=== PATIENT | female | born 1955 | race Caucasian/White ===

== ENCOUNTER 2018-12-13 08:21 | Inpatient (IN) ==
--- NOTE | 2018-11-22 14:07 | PAT Medication Instructions ---
Medication Instructions Date of Service November 22, 2018 Home Medications Pro Balancing Cream 1 dose TOPICAL UD Sea Vegetable Drops 1 dose PO UD albuterol sulfate 1 puff INHALATION UD PRN aspirin [Aspir-81] 81 mg PO DAILY calcium carbonate [Calcium 600] 600 mg PO DAILY cetirizine [Zyrtec] 10 mg PO DAILY cholecalciferol (vitamin D3) [Vitamin D3] 5,000 unit PO DAILY escitalopram oxalate [Lexapro] 10 mg PO QPM fluticasone propionate 1 - 2 spray INTRANASAL DAILY PRN lorazepam 0.5 mg PO UD PRN magnesium 400 mg PO DAILY meloxicam 15 mg PO UD PRN metoprolol succinate 25 mg PO QPM montelukast [Singulair] 10 mg PO HS multivitamin 1 cap PO DAILY rosuvastatin [Crestor] 5 mg PO UD valacyclovir 1,000 mg PO TID PRN vitamins-lipotropics [Lipo-Flavonoid Plus] 1 tab PO DAILY Continue as directed rosuvastatin [Crestor] 5 mg PO UD (OK to take the day of surgery) valacyclovir 1,000 mg PO TID PRN (if needed) ASK your surgeon for instructions meloxicam 15 mg PO UD PRN STOP taking 2 weeks before surgery Sea Vegetable Drops 1 dose PO UD vitamins-lipotropics [Lipo-Flavonoid Plus] 1 tab PO DAILY STOP taking 24 hours before surgery Pro Balancing Cream 1 dose TOPICAL UD DO NOT take the morning of surgery calcium carbonate [Calcium 600] 600 mg PO DAILY cetirizine [Zyrtec] 10 mg PO DAILY cholecalciferol (vitamin D3) [Vitamin D3] 5,000 unit PO DAILY magnesium 400 mg PO DAILY multivitamin 1 cap PO DAILY Take morning of surgery With a small sip of water, OTHERWISE NOTHING TO EAT OR DRINK AFTER MIDNIGHT: albuterol sulfate 1 puff INHALATION UD PRN (if needed, and bring with you to the hospital) fluticasone propionate 1 - 2 spray INTRANASAL DAILY PRN (if needed) lorazepam 0.5 mg PO UD PRN (if needed) metoprolol succinate 25 mg PO QAM escitalopram oxalate [Lexapro] 10 mg PO QAM Take evening before surgery albuterol sulfate 1 puff INHALATION UD PRN (if needed) fluticasone propionate 1 - 2 spray INTRANASAL DAILY PRN (if needed) lorazepam 0.5 mg PO UD PRN (if needed) montelukast [Singulair] 10 mg PO HS Other Notes If you have any questions please call us at [phone] or [phone] or [phone] or [phone]
--- NOTE | 2018-11-22 14:29 | Anesthesiology Consultation ---
Date of Service November 22, 2018 Assessment & Plan (1) Encounter for pre-operative examination: *POSSIBLE DIFFICULT INTUBATION BASED ON EXAM* SURGEON ORDERED PCP CLEARANCE 11/25 (TRA) = "I have reviewed her laboratories, chest x-ray, EKG, and urinalysis. As well I have seen the patient today on 11/25/2018 and completed exam, and I find her to be in her usual acceptable health. She is to take her metoprolol in the morning of surgery with a sip of water." Chart Review Chart Review: Acceptable Risk for Surgery and Patient seen in Pre Admission Testing Teaching & Discussion Instructed NPO after midnight before surgery, except medications with 15 cc of water. Medication instructions provided according to the PAT guidelines. History Surgery Operation Date: 12/13/18 10:20 Proposed Procedures p Right Total Hip Arthroplasty - Franko Guerrero Height/Weight Height: 5 ft 1 in Weight: 97.069 kg Allergies Allergy/AdvReac Type Severity Reaction Status Date / Time Sulfa (Sulfonamide AdvReac Unknown "SULFA Verified 11/18/18 14:45 Antibiotics) DRUGS" - HIVES Medications Home Medications Medication Instructions Recorded Confirmed Last Taken Pro Balancing Cream 1 dose TOPICAL UD 11/18/18 11/18/18 Unknown Sea Vegetable Drops 1 dose PO UD 11/18/18 11/18/18 Unknown albuterol sulfate 1 puff INHALATION UD PRN 11/18/18 11/18/18 Unknown aspirin [Aspir-81] 81 mg PO DAILY 11/18/18 11/18/18 11/17/18 calcium carbonate [Calcium 600] 600 mg PO DAILY 11/18/18 11/18/18 Unknown cetirizine [Zyrtec] 10 mg PO DAILY 11/18/18 11/18/18 Unknown cholecalciferol (vitamin D3) 5,000 unit PO DAILY 11/18/18 11/18/18 Unknown [Vitamin D3] escitalopram oxalate [Lexapro] 10 mg PO QPM 11/18/18 11/18/18 11/17/18 fluticasone propionate 1 - 2 spray INTRANASAL DAILY PRN 11/18/18 11/18/18 Unknown lorazepam 0.5 mg PO UD PRN 11/18/18 11/18/18 Unknown magnesium 400 mg PO DAILY 11/18/18 11/18/18 Unknown meloxicam 15 mg PO UD PRN 11/18/18 11/18/18 Unknown metoprolol succinate 25 mg PO QPM 11/18/18 11/18/18 11/17/18 montelukast [Singulair] 10 mg PO HS 11/18/18 11/18/18 11/17/18 multivitamin 1 cap PO DAILY 11/18/18 11/18/18 Unknown rosuvastatin [Crestor] 5 mg PO UD 11/18/18 11/18/18 Unknown valacyclovir 1,000 mg PO TID PRN 11/18/18 11/18/18 Unknown vitamins-lipotropics 1 tab PO DAILY 11/18/18 11/18/18 Unknown [Lipo-Flavonoid Plus] Past Medical History Medical History Acid reflux HX OF / NO PROBLEMS WITH CURRENTLY Anxiety Asthma Depression Glioma Being monitored with yearly imaging High blood pressure High cholesterol History of chest pain CARDIAC WORKUP JUN 2018 - NORMAL STRESS TEST, NORMAL ECHO - NO PROBLEMS WITH CHEST PAIN SINCE Nausea and vomiting after administration of anesthetic agent WITH BREAST REDUCTION SURGERY ([place], ? DATE) Osteoarthritis Seasonal allergies Sleep apnea CPAP HS Exercise / Class Metabolic Activity II 4-5 Yardwork/Stairs/Walk up hill (Denies chest pain with stairs, some mild SOB, does stairs daily at home but limited activity 2/2 hip pain) Past Family History Family History Sister Family history of thyroid cancer Past Surgical History Surgical History History of bilateral breast reduction surgery History of biopsy Cervical bx/ D+C History of carpal tunnel surgery of left wrist History of carpal tunnel surgery of right wrist AND REMOVAL OF A CYST History of colonoscopy History of dilation and curettage History of prior ablation treatment UTERUS History of tonsillectomy and adenoidectomy Past Anesthesia History No Family Hx of Anesthesia Complications (other than brother having PONV) Pt reports she tends to cough a lot on emergence/in recovery (she does have reactive airway disease). History of PONV No Hx of Motion Sickness and History of PONV Social History Smoking Status: Never smoker Do You Dip or Chew Tobacco: No Hx Alcohol Use: Yes alcohol intake frequency: holidays/special occasions only Hx Substance Use: No substance use type: does not use Review of Systems Pt denies any recent chest pain, shortness of breath, palpitations, cough, fever or URI. Physical Exam Vital Signs BP: 157/77 P: 55bpm SPO2: 98% RA T: 97.7 F R: 16 ENMT Mouth: + small oral opening; no dental restorations, no chipped teeth and no loose teeth Thyromental Distance: < 3.5 Finger Breadths (3) Mallampati Class: IV Neck + short neck; neck extension not limited Respiratory normal respiratory effort Auscultation: lungs clear to auscultation bilaterally Cardiovascular Rate/Rhythm: regular rate and regular rhythm Heart Sounds: no murmur Vessels: no carotid bruit Extremities: no edema Testing Laboratory Results 11/22/18 11/22/18 14:15 14:15 PT 10.7 INR 1.0 APTT 26.7 Blood Type O Positive Antibody Screen NEGATIVE 11/22/18 Unknown Urine Culture - Preliminary Urine,Clean Catch Pin-point growth present, reincubating. 11/22/18 WBC: 5.79 H/H: 14.7/44.8 PLATELETS: 188 SODIUM: 142 POTASSIUM: 3.9 CHLORIDE: 106 CO2: 25 BUN: 15.3 CREATININE: 0.98 GLUCOSE: 111 A1C: 5.6% Electrocardiogram Date: 05/18/18 Findings: + SB @ (53) Chest X-Ray Date: 11/22/18 Findings: + NAD Echocardiogram Date: 06/01/18 EF: 55% Left ventricle is normal in size, wall thickness, wall motion and contractility. Right ventricle is normal in size and contractility. No significant valvular disease. Stress Test Date: 06/23/18 Type: nuclear Resting EF: 62% No symptoms with pharmacologic stress. Normal hemodynamic response to pharmacologic stress. No EKG changes consistent with myocardial ischemia. SPECT perfusion imaging demonstrates no evidence of ischemia or infarct.
[2018-11-22 16:24] LABS: Partial Thromboplastin Time 26.7 Seconds (21.0-31.0); Prothrombin Time 10.7 Seconds (9.0-12.0)
--- NOTE | 2018-12-10 09:34 | History & Physical Report ---
Date of Service December 10, 2018 Assessment & Plan (1) Degenerative joint disease of right hip: plan is to admit and undergo right kayleigh History of Present Illness Chief Complaint: right hip pain Primary Care Provider: JAE DUTTA right hip pain for years after trying PT and nsaids with no relief Allergies Allergy/AdvReac Type Severity Reaction Status Date / Time Sulfa (Sulfonamide Allergy Unknown "SULFA Verified 12/07/18 10:03 Antibiotics) DRUGS" - HIVES Home Medications Home Medications Medication Instructions Recorded Confirmed Type Pro Balancing Cream 1 dose TOPICAL UD 11/18/18 11/18/18 History Sea Vegetable Drops 1 dose PO UD 11/18/18 11/18/18 History albuterol sulfate 1 puff INHALATION UD PRN 11/18/18 11/18/18 History aspirin [Aspir-81] 81 mg PO DAILY 11/18/18 11/18/18 History calcium carbonate [Calcium 600] 600 mg PO DAILY 11/18/18 11/18/18 History cetirizine [Zyrtec] 10 mg PO DAILY 11/18/18 11/18/18 History cholecalciferol (vitamin D3) 5,000 unit PO DAILY 11/18/18 11/18/18 History [Vitamin D3] escitalopram oxalate [Lexapro] 10 mg PO QPM 11/18/18 11/18/18 History fluticasone propionate 1 - 2 spray INTRANASAL DAILY PRN 11/18/18 11/18/18 History lorazepam 0.5 mg PO UD PRN 11/18/18 11/18/18 History magnesium 400 mg PO DAILY 11/18/18 11/18/18 History meloxicam 15 mg PO UD PRN 11/18/18 11/18/18 History metoprolol succinate 25 mg PO QPM 11/18/18 11/18/18 History montelukast [Singulair] 10 mg PO HS 11/18/18 11/18/18 History multivitamin 1 cap PO DAILY 11/18/18 11/18/18 History rosuvastatin [Crestor] 5 mg PO UD 11/18/18 11/18/18 History valacyclovir 1,000 mg PO TID PRN 11/18/18 11/18/18 History vitamins-lipotropics 1 tab PO DAILY 11/18/18 11/18/18 History [Lipo-Flavonoid Plus] Past Med/Surg History Medical History Acid reflux HX OF / NO PROBLEMS WITH CURRENTLY Anxiety Asthma Depression Glioma Being monitored with yearly imaging High blood pressure High cholesterol History of chest pain CARDIAC WORKUP JUN 2018 - NORMAL STRESS TEST, NORMAL ECHO - NO PROBLEMS WITH CHEST PAIN SINCE Osteoarthritis Seasonal allergies Sleep apnea CPAP HS Surgical History History of bilateral breast reduction surgery History of biopsy Cervical bx/ D+C History of carpal tunnel surgery of left wrist History of carpal tunnel surgery of right wrist AND REMOVAL OF A CYST History of colonoscopy History of dilation and curettage History of prior ablation treatment UTERUS History of tonsillectomy and adenoidectomy Nausea and vomiting after administration of anesthetic agent WITH BREAST REDUCTION SURGERY ([place], ? DATE) Family History Sister Family history of thyroid cancer Social History Preferred Language: Bulgarian Communication Ability: Effective Technology Strategist Required: No Beliefs That Will Affect Care: Restorationism Restorationism Beliefs: BUDDHIST Current Living Situation: Spouse Other Information That Helps Us Care for You: No Feels Safe at Home: Yes Smoking Status: Never smoker Do You Dip or Chew Tobacco: No Hx Alcohol Use: Yes Hx Substance Use: No Review of Systems All systems reviewed & are unremarkable except as noted in HPI & below Physical Exam Constitutional: WD/WN, vitals as above Neck: trachea midline, no thyromegaly Respiratory: normal respiratory effort, lungs clear to auscultation Cardiovascular: RRR, no murmur, no edema Gastrointestinal (Abdomen): normal bowel sounds, soft, nontender, no hepatosplenomegaly Musculoskeletal: Hip: + limited ROM of hip and + hip ROM with crepitation
--- NOTE | 2018-12-10 10:37 | History & Physical Report ---
Date of Service December 10, 2018 Assessment & Plan (1) Degenerative joint disease of right hip: plan is to admit and undergo right kayleigh History of Present Illness Chief Complaint: right hip pain Primary Care Provider: JAE DUTTA pt having pain for years after trying nsaid and pt wiht no luck in pain reduction Allergies Allergy/AdvReac Type Severity Reaction Status Date / Time Sulfa (Sulfonamide Allergy Unknown "SULFA Verified 12/07/18 10:03 Antibiotics) DRUGS" - HIVES Home Medications Home Medications Medication Instructions Recorded Confirmed Type Pro Balancing Cream 1 dose TOPICAL UD 11/18/18 11/18/18 History Sea Vegetable Drops 1 dose PO UD 11/18/18 11/18/18 History albuterol sulfate 1 puff INHALATION UD PRN 11/18/18 11/18/18 History aspirin [Aspir-81] 81 mg PO DAILY 11/18/18 11/18/18 History calcium carbonate [Calcium 600] 600 mg PO DAILY 11/18/18 11/18/18 History cetirizine [Zyrtec] 10 mg PO DAILY 11/18/18 11/18/18 History cholecalciferol (vitamin D3) 5,000 unit PO DAILY 11/18/18 11/18/18 History [Vitamin D3] escitalopram oxalate [Lexapro] 10 mg PO QPM 11/18/18 11/18/18 History fluticasone propionate 1 - 2 spray INTRANASAL DAILY PRN 11/18/18 11/18/18 Histo ry lorazepam 0.5 mg PO UD PRN 11/18/18 11/18/18 History magnesium 400 mg PO DAILY 11/18/18 11/18/18 History meloxicam 15 mg PO UD PRN 11/18/18 11/18/18 History metoprolol succinate 25 mg PO QPM 11/18/18 11/18/18 History montelukast [Singulair] 10 mg PO HS 11/18/18 11/18/18 History multivitamin 1 cap PO DAILY 11/18/18 11/18/18 History rosuvastatin [Crestor] 5 mg PO UD 11/18/18 11/18/18 History valacyclovir 1,000 mg PO TID PRN 11/18/18 11/18/18 History vitamins-lipotropics 1 tab PO DAILY 11/18/18 11/18/18 History [Lipo-Flavonoid Plus] Past Med/Surg History Medical History Acid reflux HX OF / NO PROBLEMS WITH CURRENTLY Anxiety Asthma Depression Glioma Being monitored with yearly imaging High blood pressure High cholesterol History of chest pain CARDIAC WORKUP JUN 2018 - NORMAL STRESS TEST, NORMAL ECHO - NO PROBLEMS WITH CHEST PAIN SINCE Osteoarthritis Seasonal allergies Sleep apnea CPAP HS Surgical History History of bilateral breast reduction surgery History of biopsy Cervical bx/ D+C History of carpal tunnel surgery of left wrist History of carpal tunnel surgery of right wrist AND REMOVAL OF A CYST History of colonoscopy History of dilation and curettage History of prior ablation treatment UTERUS History of tonsillectomy and adenoidectomy Nausea and vomiting after administration of anesthetic agent WITH BREAST REDUCTION SURGERY ([place], ? DATE) Family History Sister Family history of thyroid cancer Social History Preferred Language: Indian Communication Ability: Effective Assembling Inspector Required: No Beliefs That Will Affect Care: Druze Druze Beliefs: RELIGIOUS Current Living Situation: Spouse Other Information That Helps Us Care for You: No Feels Safe at Home: Yes Smoking Status: Never smoker Do You Dip or Chew Tobacco: No Hx Alcohol Use: Yes Hx Substance Use: No Review of Systems All systems reviewed & are unremarkable except as noted in HPI & below Physical Exam Constitutional: WD/WN, vitals as above Neck: trachea midline, no thyromegaly Respiratory: normal respiratory effort, lungs clear to auscultation Cardiovascular: RRR, no murmur, no edema Gastrointestinal (Abdomen): normal bowel sounds, soft, nontender, no hepatosplenomegaly Musculoskeletal: Hip: + limited ROM of hip and + hip ROM with crepitation
[~2018-12-13 08:21] MED LIST: ACETAMINOPHEN 500 MG TAB PO SCH; BUPIVACAINE 0.5 % 5 MG/1 ML PF 10ML VIAL ONE; CEFAZOLIN 2000MG 2,000 MG/15 ML SYR IV SCH; CeleBREX 200 MG CAP PO SCH; FAMOTIDINE 20 MG TAB PO SCH; LR 500ML BOLUS, THEN 15ML/HR IV SCH; METOCLOPRAMIDE HCL 10 MG TABLET PO SCH; MIDAZOLAM HCL 1 MG/ML 2ML VIAL ONE; ROPIVACAINE 0.5% 5 MG/ML 30 ML VIAL ONE; ROPIVACAINE 0.5% HCL/PF 150 MG, BUPIVACAINE 0.5% MPF 30 ML, EPINEPHrine 30MG/30ML (OR U... INFIL SCH; TRANEXAMIC ACID 1,000 MG **IV Intra-op IV SCH; TRANEXAMIC ACID 1,000 MG **IV Pre-op IV SCH; dexAMETHasone 4 MG TAB PO SCH; fentaNYL citrate 100 MCG/2 ML VIAL ONE
[2018-12-13] MEDS ORDERED: ONDANSETRON INJ 2 MG/ML 2 ML VIAL ONE (08:52)
[2018-12-13] MEDS ORDERED: LIDOCAINE HCL 2% 2 ML VIAL/AMP(20MG/ML) INFIL ONE (08:52)
[2018-12-13] MEDS ORDERED: PROPOFOL IV EMULSION 10 MG/ML 20 ML VIAL IV ONE (08:52)
[2018-12-13] MEDS ORDERED: ATROPINE SULFATE 0.1 MG/ML 10ML SYR IV PRN (09:25)
[2018-12-13] MEDS ORDERED: fentaNYL citrate 100 MCG/2 ML VIAL IV PRN (09:25)
[2018-12-13] MEDS ORDERED: ePHEDrine sulfate 50 MG/ML AMP IV PRN (09:25)
[2018-12-13] MEDS ORDERED: ONDANSETRON INJ 2 MG/ML 2 ML VIAL IV PRN ×2 (09:25→13:43)
--- NOTE | 2018-12-13 09:31 | History & Physical Bridge Note ---
Date of Service December 13, 2018 History & Physical Bridge Note I have examined the patient, reviewed the History & Physical and in the interval since the performance of the History & Physical I have noted the following changes of clinical significance: no changes noted
[2018-12-13] MEDS ORDERED: ORTHO JOINT ANESTHETIC ONE (09:58)
[2018-12-13] MEDS ORDERED: BACITRACIN INJ 50,000 UNIT VIAL ONE (09:58)
[2018-12-13] MEDS ORDERED: MIDAZOLAM HCL 1 MG/ML 2ML VIAL ONE ×2 (10:37→10:45)
[2018-12-13] MEDS ORDERED: ePHEDrine sulfate 50 MG/ML AMP ONE (10:47)
--- NOTE | 2018-12-13 11:41 | Post Operative Brief Note ---
Immediate Post Op Note v1 Date of Surgery December 13, 2018 Pre & Post Diagnosis Operation Date: 12/13/18 09:40 Pre-Op Diagnosis: Right Hip Degenerative Joint Disease and morbid obesity Post-Op Diagnosis: Right Hip Degenerative Joint Disease and morbid obesity Procedure Operation Date: 12/13/18 09:40 Actual Procedures p Right Total Hip Arthroplasty(Right) - Franko Guerrero Surgeon Franko Guerrero Sushi Chef Naresh Chawla PA-C Estimated Blood Loss 40 Findings Consistent with Post-Op Diagnosis
--- NOTE | 2018-12-13 11:44 | Operative Report ---
Post Operative Report Pre & Post Diagnosis Operation Date: 12/13/18 09:40 Pre-Op Diagnosis: Right Hip Degenerative Joint Disease and morbid obesity Post-Op Diagnosis: Right Hip Degenerative Joint Disease and morbid obesity Procedure Operation Date: 12/13/18 09:40 Actual Procedures p Right Total Hip Arthroplasty(Right) - Franko Guerrero Surgeon Franko Guerrero Subcontract Administrator Naresh Chawla PA-C Estimated Blood Loss 40 Findings Consistent with Post-Op Diagnosis Specimens None Complications none Disposition Disposition: Recovery Room Description of Procedure IMPLANTS USED: Derek size 52 mm Trident 2 Tritanium acetabular cup, 1 acetabular screw, a #3 Accolade 2 stem with a 127 degree neck, 36 mm +5 ceramic head, and a 36 mm X3 elevated liner. INDICATIONS: Mrs. Dieudonne Gtz is a pleasant female who has unfortunately failed all forms of conservative measures. Therefore, they have has decided to undergo elective surgical intervention. All risks and benefits of the surgery were discussed with the patient and the family in entirety. PROCEDURE: The patient was brought to the operating room and properly identified by myself, anesthesia, and staff. Patient was given a spinal anesthetic and placed on the operating table with the right hip up. The hip was then prepped and draped in the standard orthopedic fashion. We made a standard posterolateral approach over the greater trochanteric area. We then dissected down to subcutaneous tissue until the fascia was identified. We incised the fascia in line with the skin incision. We then split the gluteus fabio muscles with finger dissection. We then put the Charnley retractor in place. We placed the retractor underneath the gluteus medius to expose the piriformis. The piriformis was then tagged with a tag suture and released from the insertion from the greater trochanteric area with the use of electrocautery. We then performed a T capsulotomy and the femoral head and neck were atraumatically dislocated. We then performed femoral neck osteotomy at the pre-template site. We removed the femoral head and neck without difficulty. We then placed the retractor around the acetabulum. We then began to ream the acetabulum to the appropriate size. We then impacted the cup into place and had a very good fixation within the pelvis. We then put the liner in place as well. Then using multiple size approaches from the Accolade 2 system a size #3 fit very nicely in the proximal femur. I then put trial components in place. WE had very good range of motion, excellent stability, and excellent leg length equality. We removed the trial components and irrigated the wound. We then impacted the components in place and irrigated the wound once more. We then closed the capsule and fascia with a 0 Vicryl suture, the deep dermis with 2-0 Vicryl suture, and finally the skin with a running 3-0 Vicryl subcuticular stitch. A sterile dressing was applied. The patient was taken to the recovery room in stable condition. Because the patient's BMI of 42, the procedure took us about an extra 45% longer than normally takes me to perform the procedure and required an extra person to help with retraction and holding of the leg. Due to the complex nature of the procedure, the entire surgery was performed with the operational assistance of Naresh Chawla PA-C. The salon shampoo assistant was under direct supervision, was involved in the actual performance of all aspects of the surgical procedure including hemostasis, tissue retraction and incision, instrument management, patient positioning, and wound closure. I attest to the content of the Intraoperative Record and any orders documented therein. Any exceptions are noted below.
--- NOTE | 2018-12-13 13:24 | Anesthesiology Progress Note ---
Date of Service December 13, 2018 Anesthesia Post Procedure Vital Signs Vital Signs: Temp Pulse Pulse Resp BP Pulse Ox 12/13/18 13:15 97.3 F L 61 14 116/55 L 95 12/13/18 13:05 55 L 16 124/55 L 94 12/13/18 12:55 61 16 115/57 L 93 12/13/18 12:45 59 L 15 133/69 94 12/13/18 12:35 63 17 134/65 95 12/13/18 12:25 58 L 16 136/61 97 12/13/18 12:15 59 L 16 136/59 L 98 12/13/18 12:05 62 16 139/74 100 12/13/18 11:58 98.2 F 64 16 122/61 99 12/13/18 08:48 97.5 F L 56 L 18 157/81 H 98 Transfer of Care Handoff Completed per policy Notes Mental Status: alert / awake / arousable and participated in evaluation Patient Amnestic to Procedure: Yes Nausea / Vomiting: adequately controlled Pain: adequately controlled Airway Patency, RR, SpO2: stable & adequate BP & HR: stable & adequate Hydration State: stable & adequate Neuraxial Anesthesia: was administered and sensory block is resolving Anesthetic Complications: no major complications apparent and Pt Satisfied with anesthetic care
[2018-12-13] MEDS ORDERED: VALACYCLOVIR HCL 500 MG TABLET PO PRN (13:43)
[2018-12-13] MEDS ORDERED: LORazepam 0.5 MG TAB PO PRN (13:43)
[2018-12-13] MEDS ORDERED: ALUMINUM/MAGNESIUM SUSP 30 ML UDC PO PRN (13:43)
[2018-12-13] MEDS ORDERED: TRAMADOL HCL 50 MG TABLET PO PRN (13:43)
[2018-12-13] MEDS ORDERED: NALOXONE HCL 0.4 MG/1 ML VIAL/CARP IV PRN (13:43)
[2018-12-13] MEDS ORDERED: METOCLOPRAMIDE HCL INJ 5 MG/ML 2 ML VIAL IV PRN (13:43)
[2018-12-13] MEDS ORDERED: BISACODYL 10 MG SUPP PR PRN (13:43)
[2018-12-13] MEDS ORDERED: MAGNESIUM HYDROXIDE SUSP 30 ML UDC PO PRN (13:43)
[2018-12-13] MEDS: SODIUM CHLORIDE 0.9% 1000ML 1,000 ML IV SCH (15:56)
[2018-12-13] MEDS: [UNRECOGNIZED DRUG - REMARK] SCH ×2 (16:31→16:32)
[2018-12-13] MEDS ORDERED: TRANEXAMIC ACID 1,000 MG in 0.9 % SODIUM CHLORIDE 100 ML IV SCH (17:36)
[2018-12-13] MEDS: CEFAZOLIN 2000MG 2,000 MG/15 ML SYR IV SCH (18:09)
[2018-12-13] MEDS: DOCUSATE SODIUM 100 MG CAP PO SCH (20:19)
[2018-12-13] MEDS: ACETAMINOPHEN 500 MG TAB PO SCH (20:20)
[2018-12-13] MEDS: ASPIRIN 81 MG ECTAB PO SCH (20:20)
[2018-12-13] MEDS ORDERED: Nursing to Pharmacy Communication ONE (20:47)
[2018-12-13] MEDS ORDERED: METOPROLOL SUCC 25MG EXT REL TAB PO SCH (21:00)
[2018-12-13] MEDS ORDERED: SENNA 8.6 MG TAB PO SCH (21:00)
[2018-12-13] MEDS ORDERED: MONTELUKAST SODIUM 10 MG TABLET PO SCH (21:00)
[2018-12-13] MEDS ORDERED: ESCITALOPRAM OXALATE 10 MG TAB PO SCH (21:00)
[2018-12-14] MEDS: SODIUM CHLORIDE 0.9% 1000ML 1,000 ML IV SCH (01:53)
[2018-12-14] MEDS: CEFAZOLIN 2000MG 2,000 MG/15 ML SYR IV SCH (02:46)
[2018-12-14] MEDS: ACETAMINOPHEN 500 MG TAB PO SCH ×2 (05:24→13:50)
[2018-12-14 05:45] LABS: Basophils # (auto) 0.01 K/uL (0-0.2); Basophils % (auto) 0.1 %; Hemoglobin 11.8 g/dL (12.0-16.0); Immature Granulocytes # (auto) 0.04 K/uL (0.00-0.02); Immature Granulocytes % (auto) 0.3 %; Lymphocytes # (auto) 0.98 K/uL (1.2-3.4); Lymphocytes % (auto) 8.1 %; Mean Corpuscular Hgb Conc 33.7 g/dL (32-36); Mean Corpuscular Volume 91.1 fL (80-100); Mean Platelet Volume 12.2 fL (7.4-10.4); Monocytes # (auto) 0.67 K/uL (0.11-0.59); Monocytes % (auto) 5.6 %; Neutrophils # (auto) 10.34 K/uL (1.4-6.5); Neutrophils % (auto) 85.9 %; Platelet Count 174 K/uL (130-400); RDW Coefficient of Variation 13.4 % (11.5-14.5); RDW Standard Deviation 44.6 fL (36.4-46.3); Red Blood Count 3.84 M/uL (4.2-5.4); White Blood Count 12.04 K/uL (4.8-10.8)
[2018-12-14 05:56] LABS: BUN Creatinine Ratio 19.5 (10-20); Calcium 8.3 mg/dl (8.5-10.1); Creatinine Clr Calc Pharmacy 58.1 ml/min; Est GFR (African American) 66.8; Est GFR (Non-African American) 57.7; Potassium 4.2 mmol/L (3.5-5.1)
--- NOTE | 2018-12-14 07:30 | Anesthesiology Progress Note ---
Date of Service December 14, 2018 Anesthesia Post Procedure Vital Signs Vital Signs: Temp Pulse Pulse Pulse Pulse Resp BP 12/14/18 07:00 36.6 C 62 18 150/85 H 12/14/18 02:58 36.4 C L 63 18 128/68 12/13/18 23:42 36.3 C L 67 18 127/72 12/13/18 19:14 36.3 C L 66 18 12/13/18 16:35 36.3 C L 69 18 12/13/18 15:20 36.3 C L 66 18 12/13/18 14:33 37.3 C 63 19 12/13/18 14:11 59 L 18 12/13/18 13:30 36.4 C L 67 16 12/13/18 13:15 36.3 C L 61 14 12/13/18 13:05 55 L 16 12/13/18 12:55 61 16 12/13/18 12:45 59 L 15 12/13/18 12:35 63 17 12/13/18 12:25 58 L 16 12/13/18 12:15 59 L 16 12/13/18 12:05 62 16 12/13/18 11:58 36.8 C 64 16 12/13/18 08:48 36.4 C L 56 L 18 BP Pulse Ox 12/14/18 07:00 95 12/14/18 02:58 96 12/13/18 23:42 97 12/13/18 19:14 121/70 98 12/13/18 16:35 117/67 96 12/13/18 15:20 115/68 94 12/13/18 14:33 125/70 97 12/13/18 14:11 119/73 95 12/13/18 13:30 143/75 H 96 12/13/18 13:15 116/55 L 95 12/13/18 13:05 124/55 L 94 12/13/18 12:55 115/57 L 93 12/13/18 12:45 133/69 94 12/13/18 12:35 134/65 95 12/13/18 12:25 136/61 97 12/13/18 12:15 136/59 L 98 12/13/18 12:05 139/74 100 12/13/18 11:58 122/61 99 06/24/19 08:48 157/81 H 98 Pain Intensity Right Hip: Pain Intensity: 8 Notes Mental Status: alert / awake / arousable and participated in evaluation Patient Amnestic to Procedure: Yes Nausea / Vomiting: adequately controlled Pain: adequately controlled and improving with treatment Airway Patency, RR, SpO2: stable & adequate BP & HR: stable & adequate Hydration State: stable & adequate Neuraxial Anesthesia: was administered and sensory block resolved Anesthetic Complications: no major complications apparent
[2018-12-14] MEDS ORDERED: dexAMETHasone 10 MG in SYRINGE 0 ML IV SCH (08:00)
--- NOTE | 2018-12-14 08:00 | Orthopedic Progress Note ---
Date of Service December 14, 2018 Assessment & Plan (1) Degenerative joint disease of right hip: POD 1 R DONITA PT/OT. WBAT DVT Prophylaxis - ASA bid, SCD's, SANA's Pain managment - Oxycodone,Tramadol, Tylenol DC plans - Home with home health upon DC Pt to be seen by Dr Khalil today. Subjective POD 1 s/p Right DONITA Pt is awake, alert, without complaints. Mild hip soreness in the operative area but feels well. Notes she no longer has groin pain . Denies SOB, CP,LH. Physical Exam Physical Exam: Dressings C/D/I. Calves soft, NT. Hip Located. NV intact. Toes mobile. Results & Data Vital Signs (Past 12 Hours) Vital Signs Temp Pulse Resp BP Pulse Ox 12/14/18 07:00 36.6 C 62 18 150/85 H 95 12/14/18 02:58 36.4 C L 63 18 128/68 96 12/13/18 23:42 36.3 C L 67 18 127/72 97 Laboratory Results Laboratory Results WBC 12.04 K/uL (4.8-10.8) H 12/14/18 05:13 RBC 3.84 M/uL (4.2-5.4) L 12/14/18 05:13 Hgb 11.8 g/dL (12.0-16.0) L 12/14/18 05:13 Hct 35.0 % (37-47) L 12/14/18 05:13 MCV 91.1 fL (80-100) 12/14/18 05:13 MCH 30.7 pg (25-34) 12/14/18 05:13 MCHC 33.7 g/dL (32-36) 12/14/18 05:13 RDW Std Deviation 44.6 fL (36.4-46.3) 12/14/18 05:13 RDW Coeff of Elizabeth 13.4 % (11.5-14.5) 12/14/18 05:13 Plt Count 174 K/uL (130-400) 12/14/18 05:13 MPV 12.2 fL (7.4-10.4) H 12/14/18 05:13 Immature Gran % (Auto) 0.3 % 12/14/18 05:13 Neut % (Auto) 85.9 % 12/14/18 05:13 Lymph % (Auto) 8.1 % 12/14/18 05:13 [place] % (Auto) 5.6 % 12/14/18 05:13 Eos % (Auto) 0.0 % 12/14/18 05:13 Baso % (Auto) 0.1 % 12/14/18 05:13 Immature Gran # (Auto) 0.04 K/uL (0.00-0.02) H 12/14/18 05:13 Neut # (Auto) 10.34 K/uL (1.4-6.5) H 12/14/18 05:13 Lymph # (Auto) 0.98 K/uL (1.2-3.4) L 12/14/18 05:13 [place] # (Auto) 0.67 K/uL (0.11-0.59) H 12/14/18 05:13 Eos # (Auto) 0.00 K/uL (0-0.5) 12/14/18 05:13 Baso # (Auto) 0.01 K/uL (0-0.2) 12/14/18 05:13 PT 10.7 Seconds (9.0-12.0) 11/22/18 14:15 INR 1.0 (0.9-1.1) 11/22/18 14:15 APTT 26.7 Seconds (21.0-31.0) 11/22/18 14:15 PTT Ratio 1.0 11/22/18 14:15 Sodium 135 mmol/L (136-145) L 12/14/18 05:13 Potassium 4.2 mmol/L (3.5-5.1) 12/14/18 05:13 Chloride 108 mmol/L (98-107) H 12/14/18 05:13 Carbon Dioxide 24 mmol/L (21-32) 12/14/18 05:13 Anion Gap 3.0 (3-11) 12/14/18 05:13 BUN 20 mg/dl (7-18) H 12/14/18 05:13 Creatinine 1.02 mg/dl (0.6-1.2) 12/14/18 05:13 Est Cr Clr Drug Dosing 58.1 ml/min 12/14/18 05:13 Est GFR ( Amer) 66.8 12/14/18 05:13 Est GFR (Non-Af Amer) 57.7 12/14/18 05:13 BUN/Creatinine Ratio 19.5 (10-20) 12/14/18 05:13 Glucose 145 mg/dl (70-99) H 12/14/18 05:13 Calcium 8.3 mg/dl (8.5-10.1) L 12/14/18 05:13 Nasal Screen MRSA (PCR) Negative (Negative) 11/22/18 14:15 Blood Type O Positive 11/22/18 14:15 Antibody Screen NEGATIVE 11/22/18 14:15
[2018-12-14] MEDS: DOCUSATE SODIUM 100 MG CAP PO SCH (08:09)
[2018-12-14] MEDS: ASPIRIN 81 MG ECTAB PO SCH (08:09)
[2018-12-14] MEDS: OXYCODONE HCL IR 5 MG TAB (IMMEDIATE RELEASE) PO PRN ×2 (08:14→16:04)
[2018-12-14] MEDS ORDERED: METOPROLOL SUCC 25MG EXT REL TAB PO SCH (09:00)
[2018-12-14] MEDS ORDERED: ESCITALOPRAM OXALATE 10 MG TAB PO SCH (09:00)
[2018-12-14] MEDS ORDERED: MAGNESIUM OXIDE 400 MG TAB PO SCH (09:00)
[2018-12-14] MEDS ORDERED: CETIRIZINE HCL 10 MG TABLET PO SCH (09:00)
[2018-12-14] MEDS ORDERED: ROSUVASTATIN CALCIUM 10 MG TAB PO SCH (21:00)
--- NOTE | 2018-12-15 16:48 | Discharge Summary ---
DISCHARGE DIAGNOSIS: Degenerative joint disease, left hip. 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 CONSULTS: None. COMPLICATIONS: None. PROCEDURES: Right total hip arthroplasty performed by Dr. Guerrero on 12/13/2018. BRIEF HISTORY: As dictated in the history and physical. HOSPITAL SUMMARY: The patient was admitted on the above-noted date and had the above-noted surgery performed, which he tolerated well. On the first postoperative day, she was awake and alert without complaints. She had mild hip soreness in the operative area but felt well. Notes that she was no longer having groin pain. Denied shortness of breath, chest pain or lightheadedness. Dressings clean, dry and intact. Calves were soft, nontender. Hip was located. Neurovascularly intact. Toes were mobile. Vital signs were stable. She was afebrile. Hemoglobin was 11.8 and she was started on physical therapy protocol and continued on deep venous thrombosis prophylaxis and pain management. She was planning for home health services upon discharge. She progressed well with her physical therapy and had 1 small episode of nausea when walking around the hallways with nursing staff; however, later on with her full PT and OT protocol she did well and was remaining stable and it was felt she could be discharged to home. For further review, please see chart. LABORATORY AND X-RAY DATA: As per chart. DISCHARGE INSTRUCTIONS: The patient was discharged to home in satisfactory condition on 12/14/2018. DIET: Regular. ACTIVITY: Weightbearing, right lower extremity with a walker. Follow DONITA instruction sheets and special care instructions as noted. Follow up with Dr. Guerrero in 2 weeks. The patient to call for appointment if one has not been made for you. DISCHARGE MEDICATIONS: Acetaminophen 1000 mg p.o. q. 8 hours, aspirin 81 mg p.o. b.i.d. for 30 days, cefadroxil 500 mg p.o. b.i.d., sennoside 17.2 mg p.o. at bedtime. Resume home meds as listed and stop taking aspirin and meloxicam. Of note, the patient was also given a prescription for tramadol 50 mg p.o. q. 4-6 hours p.r.n. pain.
== END 2018-12-14 16:46 | disposition home health service (06) | DRG 470 ==
LOC: ASU 08:21 → 3E 12:04